=== PATIENT | female | born 1955 | race Caucasian/White ===

== ENCOUNTER 2016-11-18 06:39 | Day surgery (SDC) | payer OTHER ==
[~2016-11-18] VITALS: Ht 165.1 cm; Wt 81.6 kg
[2016-11-18] VITALS (11 sets, daily range): BP systolic 138–162; BP diastolic 74–99; PULSE 65–89; RESP 10–21; O2SAT 97–100
[2016-11-18] MEDS: Lactated Ringer's 1,000 ML IV SCH ×2 (05:51→09:53)
[~2016-11-18 06:39] MED LIST: CeFAZolin Inj 2 GM in IV Premix 1 EACH IV SCH; OXYB10TA PO
[2016-11-18] MEDS ORDERED: fentaNYL-PF 50 mCg/mL 2 mL Inj ONE (06:40)
[2016-11-18] MEDS ORDERED: Propofol 10,000 mCg/mL 20 mL Inj ONE (06:40)
[2016-11-18] MEDS ORDERED: Dexamethasone 4 mg/mL Inj ONE (06:40)
[2016-11-18] MEDS ORDERED: Ondansetron 2 mg/mL 2 mL Inj ONE (06:40)
--- NOTE | 2016-11-18 07:57 | PCM.HPANE ---
Patient Data Surgeon Admitting Provider: Attending Provider:Max Smith MD Primary Care Physician:Trang Other Provider:Clayton Wallace Anesthesia Reason for Visit Stress Incontinence Ht/WT & BMI Height (Feet): 5 Height (Inches): 5 Weight (Kilograms): 81.646 Body Mass Index 29.00 Allergies Coded Allergies: No Known Allergies (Unverified , 11/17/16) Past Anesthesia History Anesthesia History: Denies:: Anesthesia Reactions, Malignant Hyperthermia Diabetes History Hx Diabetes?: No MRSA MRSA: No Medications Hypertension Medication: No Home Meds Incl Beta Jona: No Reported Medications Oxybutynin Chloride ER 10 Mg Tab.[id number] Mg PO DAILY Ref 0 11/17/16 History History of ENT Problems?: Yes HEENT History: Positive for:: Sinus Problem (ENVIRONMENTAL ALLERGIES) Other HEENT Pertinent History: S/P LT SUPERFICIAL PAROTIDECTOMY Hx of Heart Problems?: No Cardiovascular History: Denies:: Heart Murmur Hypertension Hx of Respiratory Problem?: No Respiratory History: Denies:: Oxygen Administration Use of C-PAP Machine Hx Neurologic Problems?: No Hx of GI Problems?: No Hx of Problems?: Yes Genitourinary History: Denies:: Urinary Tract Infection Female Hx: Positive for:: Problems with Breasts? (S/P LT BREAST BX/MASTECTOMY/ RECONSTRUCTION FOR CA) Denies:: Currently (S/P DX LAP FOR ECTOPIC PG) Skin History: Denies:: History Skin Disorders? Pressure Ulcers Hx Musculoskeletal Problems?: No Hx of Psycho/Social Problems?: Yes Psycho Social History: Positive for:: Anxiety Hx Surgeries?: Yes (VAG HYST/BSO,A&P RPR W/ GRAFT,VAULT SUSP,DX LAP,LT PAROTIDECTOMY,MASTECTOMY) Hx Any Other Health Problems?: Yes Other History: Positive for:: Cancer (LT BREAST) Denies:: Endocrine Disease Hospitalization Thyroid Disease History Blood Transfusions: Positive for:: Accept Blood Products? Blood Transfusions Denies:: Blood Transfuse Reaction Hx Diabetes: No Hx Alcohol Use: YesAlcoholic Drinks Per Day: 2 BOTTLES WINE/WEEKHx Substance Use: Yes (HX OF EXPERIMENTATION IN COLLEGE) Smoking Status: Former Smoker Have You Smoked inLast 12 mo: No Stop/Bang S-Snoring: Do You Snore Loudly: No T-Tired: feel tired, fatigued: No O-Obsered: Observed not breath: No P-Blood Pressure: treated: No B- Body Mass Index > 35 kg/m2: No A- Age over 50: Yes N- Neck Large Circumference: No G- Gender Male: No ERNESTINE Total Score: 1 ERNESTINE Risk Assessment: Low Risk, <3 Yes Risk Assessment Category Category 1A: Patient has history of documented sleep apnea, and HAS NOT received any narcotic, sedative or anesthesia administration during this stay. Category 1B: Patient has history of documented sleep apnea, and HAS received any narcotic , sedative or anesthesia administration during this stay Category 2: Patient has SUSPECTED Obstructive Sleep Apnea, and HAS received any narcotic , sedative or anesthesia administration during this stay. Category 3: Patient has SUSPECTED Obstructive Sleep Apnea and HAS NOT received narcotic, sedative or anesthesia administration during this stay. Category 4: Outpatient in Procedural Areas with known sleep apnea or who screen positive for High Risk via the STOP/BANG questionnaire. Exam Exam Vital Signs Vital Signs Date Time Temp Pulse Resp B/P Pulse Ox O2 Delivery O2 Flow Rate FiO2 11/18/16 07:26 36.1 70 16 151/86 97 Room Air General Appearance: Alert, Oriented X3, Cooperative, No Acute Distress HEENT/AIRWAY: MP 1, Neck Movement (FROM), Mouth Opening (3-4FB) Lungs: Normal Air Movement Heart: Exam Unremarkable Meds/Labs/Diagnostics Admission Meds Current Medications Lactated Ringer's (Lr) 1,000 ml @ 120 mls/hr [id number] IV Last administered on t 05:51; Start 11/18/16 at 05:00; Stop 11/18/16 at 13:19 Plan Impression Patient chart reviewed, patient interviewed and anesthestic plan with risks, benefits, and alternatives discussed, and informed consent obtained. ASA Physical Status: ASA2 Mod Systemic Disease Anesthetic Plan: GA Bene/Risks/Altern/Consents: Yes HP Complete Prior to Induction: Yes Roney Flowers MD Nov 18, 2016 07:56
[2016-11-18] MEDS ORDERED: Lactated Ringer's 500 ML IV PRN (10:06)
[2016-11-18] MEDS ORDERED: Lactated Ringer's 1,000 ML IV SCH (10:06)
[2016-11-18] MEDS ORDERED: MetoCLOpramide 5 mg/mL 2 mL Inj IVPUSH PRN ×2 (10:10→10:55)
[2016-11-18] MEDS ORDERED: EPHEDrine Sulfate 50 mg/mL Inj IVPUSH PRN (10:10)
[2016-11-18] MEDS ORDERED: Phenylephrine 10,000 mCg/mL Inj IVPUSH PRN (10:10)
[2016-11-18] MEDS ORDERED: HYDROmorphone 1 mg/mL Inj IVPUSH PRN (10:10)
[2016-11-18] MEDS ORDERED: fentaNYL-PF 50 mCg/mL 2 mL Inj IVPUSH PRN (10:10)
[2016-11-18] MEDS ORDERED: Dexamethasone 4 mg/mL Inj IVPUSH PRN (10:10)
[2016-11-18] MEDS ORDERED: Ondansetron 2 mg/mL 2 mL Inj IVPUSH PRN ×2 (10:10→10:55)
[2016-11-18] MEDS ORDERED: Albuterol-Ipratropium 3 mL Inhalation Solution NEB PRN (10:10)
[2016-11-18] MEDS ORDERED: Lidocaine 1%-Epi 1:100,000 20 mL Inj INJ ONE (10:18)
[2016-11-18] MEDS ORDERED: Gentamicin 40 mg/mL 2 mL Inj IRRIGATION ONE (10:19)
[2016-11-18] MEDS ORDERED: diphenhydrAMINE 25 mg Capsule PO PRN (10:55)
--- NOTE | 2016-11-18 11:02 | PCM.DIGYN ---
Surgical Discharge Instruction Dates of Hospitalization Date of Hospital Admission 11/18/16 outpatient surgery Providers Admitting Physician: Primary Care Physician: Trang Attending Physician: Max Smith MD Diagnosis at Time of Discharge Diagnosis at time of discharge stress incontinence Post-operative diagnosis same Problems: Diet Discharge Diet: No restrictions Activity Discharge Activity-General: Restrict lifting to no greater than (10 lbs for 6 wk) Dressing and Incisional Care Dressing Care: Allow Steri Stripes to fall off Hygiene: May shower Follow Up Plan Follow-up appointment: Weeks (2; also f/u in [address] Smith's MA if home with bruner catheter) Call your provider for: Fever, Chills, Shortness of breath, Vomitting, Drainage at incision, Heavy vaginal bleeding, Wound redness, Increasing pain Max Smith MD Nov 18, 2016 11:02
--- NOTE | 2016-11-18 11:08 | PCM.SURGOP ---
Surgical Operative Report Date of Service: Nov 18, 2016 Pre Operative Diagnosis Stress incontinence Post Operative Diagnosis same Procedure: Tension-free vaginal tape obturator sling and cystoscopy Surgeon and Shell Sieve Operator: Surgeon: Max Smith MD Assistants: None Indication for Procedure On 05/14/16, [place] underwent the following Procedure: 1. vaginal hysterectomy with BSO 2. anterior repair with Xenform graft augmentation 3. posterior repair 4. high uterosacral ligament vaginal vault suspension, cystoscopy and enterocele repair She had noted some stress incontinence after surgery. Preoperative urodynamics did not reveal stress incontinence. Postoperative exam revealed positive stress incontinence with valsalva maneuver. She agrees to a TVT-obturator sling, The patient signed the consent form. She agreed with the risks, benefits, and alternatives to surgery. The risks included but not limited to recurrence or persistence of incontinence, development of voiding dysfunction, development of urinary urgency, urgency incontinence, frequency, and need for intermittent self-catheterization or prolonged indwelling catheterization, injury to other organs including bladder, bowel, nerves or blood vessels. Need for blood transfusion, need for temporary colostomy or urinary stenting. Development of vaginal scarring, dyspareunia, defecatory dysfunction, recurring pain, hematoma formation, urinary tract infection, cellulitis, necrotizing fascitis, and medical risks including myocardial infarction, stroke or VTE. She also understood the FDA warnings associated with the use of vaginal mesh (dysparunia, vaginal erosion, erosion into bowel/bladder/urethra, requiring further surgery to correct these complications). The patient understood the risks and benefits and consented to surgery. Findings: see dictation Procedure Details The patient was brought to the operating room and placed under general. Prepped and draped in the usual fashion with legs in yellow-fin stirrups. Given a dose of IV ancef. TVT-Obturator sling and cystoscopy. Lidocaine 1% with [id number] epinephrine was infiltrated along the anterior vaginal wall mucosa at the level of the mid urethra. Midline vertical incision was made at that level, 2 periurethral tunnels were created with Metzenbaum scissors. Two stab incisions were created at the skin at the groin at a level 2 cm superior to the external urethral meatus and 2 cm lateral to the fold created between the vulva and thigh. Daniel catheter had already been inserted. A butterfly guide was inserted into the right periurethral tunnel, a curved helical needle was inserted on top of the guide and rotated out to the ipsilateral skin incision. The same procedure was performed on the contralateral side. Next the Daniel catheter was removed. Cystoscopy was performed. There was no inadvertent penetration of the sling to the vagina, urethra or bladder. The bladder appeared normal. The plastic sheaths of the sling were removed. The bladder was filled with 300 mL of sterile water. Using the Crede maneuver, sling tension was appropriately adjusted. Also a right angle clamp was allowed to easily pass behind the sling so that the sling was placed in a tension-free manner. The sling ends were cut at the level of the skin. The skin was reapproximated using Mastisol, Steri-Strips and band-aids. The vagina was reapproximated using 3-0 Vicryl suture in a running fashion. EBL 10 ml no complications Pt brought to recovery room in stable condition Complications There were no periprocedural complications identified. Surgical Specimen Removed: No Specimen sent to Pathology: No Anesthetic Plan: GA Grafts, Implants: Implants-See Implant Record Output, Estimated Blood Loss: 10 (ml) Blood Administration during ellison: No Drains: None Catheters: Urethral 2 Way Daniel Post Operative Plan voiding trial once ambulatory, then discharge home copies to: Max Smith MD, William Andre Z MD Nov 18, 2016 11:08
--- NOTE | 2016-11-18 11:27 | PCM.ANEP1 ---
Post Anesthesia Phase 1 PACU Phase 1 Assessment Date of Service: Nov 18, 2016 Vital Signs Vital Signs Date Time Temp Pulse Resp B/P Pulse Ox O2 Delivery O2 Flow Rate FiO2 11/18/16 11:10 68 16 162/79 100 Room Air 11/18/16 11:05 35.9 65 10 149/87 99 Room Air 11/18/16 11:00 66 10 149/87 98 Room Air 11/18/16 10:55 77 21 155/93 97 Room Air 11/18/16 10:50 86 18 158/83 97 Room Air 11/18/16 10:48 37.1 89 18 162/99 97 Room Air 11/18/16 07:26 36.1 70 16 151/86 97 Room Air Anesthetic Administered: GA Level of Alertness: Awake, talking MOORE's with Equal Strength: Yes Pain: No Nausea or Vomiting: No Oxygen Delivery: Room Air Lungs: Normal Air Movement Dermatome Level: Full Sensation Roney Flowers MD Nov 18, 2016 11:27
--- NOTE | 2016-11-18 11:27 | PCM.ANEP2 ---
Post Anesthesia Evaluation ASA/CMS Post Anesthesia VS in Patient's Normal Range?: Yes Resp Stable; Airway Patent?: Yes CV Function & Hydration Stable: Yes Mental Status Recovered?: Yes Pain control Satisfactory?: Yes N/V Control Satisfactory?: Yes Roney Flowers MD Nov 18, 2016 11:27
[2016-11-18] MEDS: oxyCODONE-Acetamin 5-325 mg Tablet PO PRN ×2 (12:10→12:45)
== END 2016-11-18 23:59 | disposition home or self-care (01) ==
LOC: SAS 06:39
PROVIDERS: ATTEND Obstetrics & Gynecology
DX: N39.46 Mixed incontinence (principal); F41.9 Anxiety disorder, unspecified; Z90.710 Acquired absence of both cervix and uterus; Z87.891 Personal history of nicotine dependence; Z85.3 Personal history of malignant neoplasm of breast
CPT/HCPCS: 36415; 57288; 86850; C1771; J0690; J1100; J1580; J1885; J2250; J2405; J3010; J7120